=== PATIENT | male | born 1965 | race Caucasian/White ===

== ENCOUNTER 2017-10-03 12:26 | Emergency (ER) | payer OTHER ==
[~2017-10-03] VITALS: Ht 170.2 cm; Wt 60.4 kg
[2017-10-03] MEDS ORDERED: SODIUM CHLORIDE 0.9% 1,000 ML IV ONE (13:29)
[2017-10-03] MEDS ORDERED: SODIUM CHLORIDE 0.9% 1,000ML IVBOLUS ONE (13:30)
[2017-10-03 13:50] LABS: BASOPHILS # (AUTO) 0.13 x10^3/uL (0-0.1); BASOPHILS % (AUTO) 1 % (0-1); EOSINOPHILS # (AUTO) 0.26 x10^3/uL (0-0.4); EOSINOPHILS % (AUTO) 2 % (1-7); LYMPHOCYTES % (AUTO) 18 % (22-44); MD NO; MEAN CORPUSCULAR HEMOGLOBIN 33.8 pg (27.5-34.5); MEAN CORPUSCULAR HGB CONC 34.6 g/dL (33.2-36.2); MEAN CORPUSCULAR VOLUME 97.6 fL (81-97); MEAN PLATELET VOLUME 6.9 fL (7.4-10.4); MONOCYTES # (AUTO) 0.94 x10^3/uL (0.2-0.8); MONOCYTES % (AUTO) 7 % (2-9); NEUTROPHILS # (AUTO) 9.54 x10^3/uL (1.8-6.8); NEUTROPHILS % (AUTO) 72 % (42-75); PLATELET COUNT 453 x10^3/uL (130-400); RED BLOOD COUNT 4.34 x10^6/uL (4.38-5.82)
[2017-10-03 13:59] LABS: ALANINE AMINOTRANSFERASE 12 U/L (12-78); ALBUMIN 3.2 g/dL (3.4-5.0); ANION GAP 7 mmol/L (5-15); CALCIUM 8.7 mg/dL (8.5-10.1); CHLORIDE 105 mmol/L (98-107); CREATININE 0.99 mg/dL (0.7-1.3)
[2017-10-03 14:04] LABS: ALKALINE PHOSPHATASE 97 U/L (45-117); BILIRUBIN,TOTAL 0.6 mg/dL (0.2-1.0); TOTAL PROTEIN 7.1 g/dL (6.4-8.2); TROPONIN I < 0.015 ng/mL (0.000-0.045)
[2017-10-03 14:35] VITALS: BP 124/83
== END 2017-10-03 15:04 | disposition home or self-care (01) ==
LOC: ED 13:11
DX: K85.20 Alcohol induced acute pancreatitis without necrosis or infection (principal); R07.89 Other chest pain; R06.02 Shortness of breath
CPT/HCPCS: 36415; 71045; 80053; 83690; 84484; 85025; 93005; 99285